=== PATIENT | male | born 1970 | race Hispanic/Latino ===

== ENCOUNTER 2019-07-27 14:07 | Emergency (ER) | payer BC ==
[~2019-07-27] VITALS: Ht 167.6 cm; Wt 68.9 kg
[~2019-07-27 14:07] MED LIST: AMOXICILLIN500 MG PO; NORCO 5-325 TA1 EACH PO; OXYBUTYNIN CHLO10 MG PO; ZYRTEC10 MG PO
[2019-07-27] MEDS ORDERED: NORCO 5-325 TA1 EACH PO (14:28)
== END 2019-07-27 19:16 | disposition home or self-care (01) ==
LOC: ED 14:07
DX: G89.18 Other acute postprocedural pain (principal); R10.9 Unspecified abdominal pain
CPT/HCPCS: 74177; 80053; 81001; 83690; 85025; 96361; 96374; 96375; 96376; 99284-25; J1170; J1885; J2405; J7030; Q9967